=== PATIENT | male | born 1945 | race Caucasian/White ===

== ENCOUNTER 2018-01-12 18:50 | Inpatient (IN) | payer MEDICARE, OTHER ==
[~2018-01-12] VITALS: Ht 176.5 cm; Wt 140.9 kg
[2018-01-12 19:34] LABS: Basophils # (auto) 0 uL; Basophils % (auto) 0.6 % (0.0-2.0); Eosinophils # (auto) 0.1 uL; Eosinophils % (auto) 1.6 % (0.0-7.0); Hematocrit 37.2 % (41.0-53.0); Hemoglobin 12.6 g/dL (13.5-17.5); Lymphocytes # (auto) 1.4 uL; Lymphocytes % (auto) 20.4 % (10.0-50.0); Mean Corpuscular Hemoglobin 33.2 pg (28.0-32.0); Mean Corpuscular Volume 97.9 fL (80.0-100.0); Monocytes # (auto) 0.5 uL; Monocytes % (auto) 7.5 % (0.0-12.0); Neutrophils # (auto) 4.6 uL; Neutrophils % (auto) 69.9 % (37.0-80.0); Platelet Count (auto) 219 10^3/uL (140-450); Red Cell Distribution Width 13.8 % (11.8-14.3); White Blood Cell 6.6 10^3/uL (4.4-10.8)
[2018-01-12 19:42] LABS: Albumin 3.5 g/dL (3.4-5.0); BUN/Creatinine Ratio 15.1; Calcium 8.7 mg/dL (8.5-10.1); Potassium 3.8 mmol/L (3.5-5.1)
[2018-01-12 19:46] LABS: Bilirubin, Total 0.4 mg/dL (0.2-1.0)
[2018-01-13 03:46] LABS: Urine Bacteria NONE SEEN /hpf (None Seen); Urine Blood 3+ /uL (Negative); Urine WBC 535 /hpf (0 - 3); Urine WBC Clumps PRESENT /hpf (None Seen)
[2018-01-13 03:48] LABS: Urine Specific Gravity 1.008 (1.001-1.035)
[2018-01-13] MEDS ORDERED: HYDROcodone-ACET 5/325MG TAB PO PRN (06:00)
[2018-01-13] MEDS ORDERED: ACETAMINOPHEN 325 MG TAB PO PRN (06:00)
[2018-01-13] MEDS: SODIUM CHLORIDE 0.9% 1,000 ML IV SCH ×2 (06:39→22:17)
[2018-01-13 07:15] LABS: Hematocrit 34.5 % (41.0-53.0); Hemoglobin 11.6 g/dL (13.5-17.5)
[2018-01-13] MEDS: cefTRIAXone 1GM/10ml IVPUSH 10 ML IV SCH (09:12)
[2018-01-13] MEDS ORDERED: FUROSEMIDE 40 MG TAB PO SCH (10:00)
[2018-01-13] MEDS: LISINOPRIL 5 MG TAB PO SCH (10:08)
[2018-01-13] MEDS: NIFEdipine ER 30 MG TAB PO SCH (10:08)
[2018-01-13] MEDS: FAMOTIDINE 20 MG TAB PO SCH ×2 (10:08→22:17)
[2018-01-13 20:48] VITALS: BP 155/82
[2018-01-13 22:00] VITALS: BP 155/82
[2018-01-14] MEDS ORDERED: LISI-275 PO (00:47)
[2018-01-14] MEDS ORDERED: LEVO25TA49 PO (00:47)
[2018-01-14] MEDS ORDERED: DOXA4TAB40 PO (00:47)
[2018-01-14] MEDS ORDERED: NIFE90TA30 PO (00:47)
[2018-01-14] MEDS ORDERED: ASPI81TA27 PO (00:47)
[2018-01-14 05:00] VITALS: BP 147/87
[2018-01-14] MEDS: LEVOTHYROXINE SODIUM 50 MCG TAB PO SCH (06:45)
[2018-01-14 07:12] LABS: Basophils # (auto) 0 uL; Basophils % (auto) 0.4 % (0.0-2.0); Eosinophils # (auto) 0.1 uL; Eosinophils % (auto) 1.1 % (0.0-7.0); Hematocrit 34.4 % (41.0-53.0); Hemoglobin 11.7 g/dL (13.5-17.5); Lymphocytes # (auto) 1.1 uL; Lymphocytes % (auto) 13.5 % (10.0-50.0); Mean Corpuscular Hemoglobin 33.1 pg (28.0-32.0); Mean Corpuscular Hgb Conc. 33.9 g/dL (32.0-36.0); Mean Corpuscular Volume 97.6 fL (80.0-100.0); Monocytes # (auto) 0.7 uL; Neutrophils # (auto) 6.5 uL; Platelet Count (auto) 209 10^3/uL (140-450); Red Blood Cells 3.53 10^6/uL (4.5-5.90); Red Cell Distribution Width 13.6 % (11.8-14.3); White Blood Cell 8.4 10^3/uL (4.4-10.8)
[2018-01-14 07:25] LABS: Calcium 8.9 mg/dL (8.5-10.1); Potassium 3.7 mmol/L (3.5-5.1)
[2018-01-14 07:29] LABS: Albumin 3.1 g/dL (3.4-5.0); BUN/Creatinine Ratio 14.1
[2018-01-14 07:31] LABS: Bilirubin, Total 0.4 mg/dL (0.2-1.0); Total Protein 7.2 g/dL (6.4-8.2)
[2018-01-14 09:00] VITALS: BP 154/88
[2018-01-14] MEDS: cefTRIAXone 1GM/10ml IVPUSH 10 ML IV SCH (10:23)
[2018-01-14] MEDS: NIFEdipine ER 30 MG TAB PO SCH (10:23)
[2018-01-14] MEDS: FAMOTIDINE 20 MG TAB PO SCH ×2 (10:23→21:44)
[2018-01-14] MEDS: LISINOPRIL 5 MG TAB PO SCH (10:24)
[2018-01-14 12:51] VITALS: BP 149/76
[2018-01-14] MEDS: DOCUSATE SOD 100 MG CAP PO PRN ×2 (14:38→21:44)
[2018-01-14] MEDS: SODIUM CHLORIDE 0.9% 1,000 ML IV SCH (15:12)
[2018-01-14 16:31] VITALS: BP 134/81
[2018-01-14 22:00] VITALS: BP 145/77
[2018-01-15] MEDS: SODIUM CHLORIDE 0.9% 1,000 ML IV SCH (01:49)
[2018-01-15 05:00] VITALS: BP 144/88
[2018-01-15] MEDS: LEVOTHYROXINE SODIUM 50 MCG TAB PO SCH (06:07)
[2018-01-15] MEDS: cefTRIAXone 1GM/10ml IVPUSH 10 ML IV SCH (09:00)
[2018-01-15 09:12] VITALS: BP 140/72
[2018-01-15 10:18] LABS: Basophils # (auto) 0.1 uL; Basophils % (auto) 0.7 % (0.0-2.0); Eosinophils # (auto) 0.2 uL; Eosinophils % (auto) 2.7 % (0.0-7.0); Hematocrit 33.1 % (41.0-53.0); Lymphocytes # (auto) 1.3 uL; Mean Corpuscular Hemoglobin 32.4 pg (28.0-32.0); Mean Corpuscular Hgb Conc. 33.3 g/dL (32.0-36.0); Mean Corpuscular Volume 97.4 fL (80.0-100.0); Monocytes # (auto) 0.7 uL; Monocytes % (auto) 8.2 % (0.0-12.0); Neutrophils % (auto) 72.4 % (37.0-80.0); Platelet Count (auto) 213 10^3/uL (140-450); Red Cell Distribution Width 13.6 % (11.8-14.3); White Blood Cell 8.2 10^3/uL (4.4-10.8)
[2018-01-15] MEDS: NIFEdipine ER 30 MG TAB PO SCH (10:21)
[2018-01-15] MEDS: FAMOTIDINE 20 MG TAB PO SCH ×2 (10:22→21:41)
[2018-01-15] MEDS: LISINOPRIL 5 MG TAB PO SCH (10:22)
[2018-01-15 10:32] LABS: INR 1.04 (0.9-1.15); Partial Thromboplastin Time 28.6 sec (23.78-33.04); Prothrombin Time 11.1 sec (9.27-12.13)
[2018-01-15 10:37] LABS: BUN/Creatinine Ratio 13.9; Calcium 8.9 mg/dL (8.5-10.1); Potassium 3.5 mmol/L (3.5-5.1)
[2018-01-15] MEDS ORDERED: FUROSEMIDE 40 MG/4 ML VIAL IV ONE (11:00)
[2018-01-15] MEDS ORDERED: POTASSIUM CHL 20 Meq TABLET PO ONE (11:00)
[2018-01-15 13:25] VITALS: BP 139/74
[2018-01-15 16:57] VITALS: BP 142/75
[2018-01-15 17:00] VITALS: BP 137/65
[2018-01-15 22:12] VITALS: BP 136/83
[2018-01-16] VITALS (7 sets, daily range): BP systolic 121–164; BP diastolic 62–80
[2018-01-16] MEDS: LEVOTHYROXINE SODIUM 50 MCG TAB PO SCH (06:48)
[2018-01-16] MEDS ORDERED: HYDROcodone-ACET 5/325MG TAB PO PRN (10:15)
[2018-01-16] MEDS: FAMOTIDINE 20 MG TAB PO SCH ×2 (10:47→21:39)
[2018-01-16] MEDS: FUROSEMIDE 40 MG/4 ML VIAL IV SCH (10:47)
[2018-01-16] MEDS: cefTRIAXone 1GM/10ml IVPUSH 10 ML IV SCH (10:47)
[2018-01-16] MEDS: POTASSIUM CHL 20 Meq TABLET PO SCH (10:48)
[2018-01-16] MEDS: NIFEdipine ER 30 MG TAB PO SCH (10:48)
[2018-01-16] MEDS: LISINOPRIL 5 MG TAB PO SCH (10:48)
[2018-01-16] MEDS: DOCUSATE SOD 100 MG CAP PO PRN (21:39)
[2018-01-17 04:58] VITALS: BP 145/79
[2018-01-17] MEDS ORDERED: FLEET ENEMA(ADULT) 135 ML PR ONE (05:00)
[2018-01-17] MEDS: LEVOTHYROXINE SODIUM 50 MCG TAB PO SCH (06:33)
[2018-01-17 07:40] VITALS: BP 130/86
[2018-01-17 09:00] VITALS: BP 130/86
[2018-01-17] MEDS: LACTULOSE 20Gm/30ML SOLN PO SCH ×2 (10:50→22:07)
[2018-01-17] MEDS: FAMOTIDINE 20 MG TAB PO SCH ×2 (10:50→22:07)
[2018-01-17] MEDS: POTASSIUM CHL 20 Meq TABLET PO SCH (10:50)
[2018-01-17] MEDS: FUROSEMIDE 40 MG/4 ML VIAL IV SCH (10:50)
[2018-01-17] MEDS: LISINOPRIL 5 MG TAB PO SCH (10:51)
[2018-01-17] MEDS: NIFEdipine ER 30 MG TAB PO SCH (10:51)
[2018-01-17 13:00] VITALS: BP 138/67
[2018-01-17 17:00] VITALS: BP 129/76
[2018-01-17 21:51] VITALS: BP 150/75
[2018-01-18] VITALS (7 sets, daily range): BP systolic 129–158; BP diastolic 68–78
[2018-01-18] MEDS: LEVOTHYROXINE SODIUM 50 MCG TAB PO SCH (06:48)
[2018-01-18] MEDS: FUROSEMIDE 40 MG/4 ML VIAL IV SCH (10:19)
[2018-01-18] MEDS: LISINOPRIL 5 MG TAB PO SCH (10:20)
[2018-01-18] MEDS: POTASSIUM CHL 20 Meq TABLET PO SCH (10:20)
[2018-01-18] MEDS: LACTULOSE 20Gm/30ML SOLN PO SCH ×2 (10:20→21:32)
[2018-01-18] MEDS: NIFEdipine ER 30 MG TAB PO SCH (10:21)
[2018-01-18] MEDS: FAMOTIDINE 20 MG TAB PO SCH ×2 (10:22→21:32)
[2018-01-19 05:23] VITALS: BP 145/84
[2018-01-19 05:28] LABS: Basophils # (auto) 0.1 uL; Basophils % (auto) 0.8 % (0.0-2.0); Eosinophils # (auto) 0.4 uL; Eosinophils % (auto) 5.2 % (0.0-7.0); Hematocrit 34.9 % (41.0-53.0); Hemoglobin 11.8 g/dL (13.5-17.5); Lymphocytes # (auto) 1.3 uL; Lymphocytes % (auto) 16.8 % (10.0-50.0); Mean Corpuscular Hgb Conc. 33.7 g/dL (32.0-36.0); Monocytes # (auto) 0.8 uL; Neutrophils # (auto) 5.4 uL; Neutrophils % (auto) 67.2 % (37.0-80.0); Platelet Count (auto) 234 10^3/uL (140-450); Red Blood Cells 3.57 10^6/uL (4.5-5.90); Red Cell Distribution Width 13.7 % (11.8-14.3)
[2018-01-19 05:37] LABS: INR 0.99 (0.9-1.15); Partial Thromboplastin Time 27.4 sec (23.78-33.04); Prothrombin Time 10.6 sec (9.27-12.13)
[2018-01-19] MEDS: LEVOTHYROXINE SODIUM 50 MCG TAB PO SCH (06:31)
[2018-01-19 06:40] LABS: Albumin 3.1 g/dL (3.4-5.0); BUN/Creatinine Ratio 21.4; Bilirubin, Total 0.4 mg/dL (0.2-1.0); Calcium 8.9 mg/dL (8.5-10.1); Potassium 4.1 mmol/L (3.5-5.1); Total Protein 7.4 g/dL (6.4-8.2)
[2018-01-19 09:00] VITALS: BP 128/69
[2018-01-19] MEDS ORDERED: HYDROcodone-ACET 5/325MG TAB PO PRN (09:30)
[2018-01-19] MEDS: LACTULOSE 20Gm/30ML SOLN PO SCH ×2 (09:33→22:00)
[2018-01-19] MEDS: FAMOTIDINE 20 MG TAB PO SCH ×2 (09:35→22:13)
[2018-01-19] MEDS: LISINOPRIL 5 MG TAB PO SCH (09:36)
[2018-01-19] MEDS: NIFEdipine ER 30 MG TAB PO SCH (09:36)
[2018-01-19 13:00] VITALS: BP 141/77
[2018-01-19] MEDS: AMPICILLIN INJ 1 GM in SODIUM CHL 0.9% 50 ML IV SCH ×3 (15:20→23:07)
[2018-01-19 17:00] VITALS: BP 149/71
[2018-01-19] MEDS: TEMAZEPAM 15 MG CAP PO PRN ×2 (22:14→22:26)
[2018-01-20 00:08] VITALS: BP 135/83
[2018-01-20 05:05] VITALS: BP 127/57
[2018-01-20] MEDS: AMPICILLIN INJ 1 GM in SODIUM CHL 0.9% 50 ML IV SCH ×3 (05:42→18:00)
[2018-01-20 05:45] LABS: Basophils # (auto) 0.1 uL; Basophils % (auto) 0.7 % (0.0-2.0); Eosinophils # (auto) 0.3 uL; Eosinophils % (auto) 4.2 % (0.0-7.0); Hematocrit 33.7 % (41.0-53.0); Hemoglobin 11.7 g/dL (13.5-17.5); Lymphocytes # (auto) 1.1 uL; Lymphocytes % (auto) 13.7 % (10.0-50.0); Mean Corpuscular Hemoglobin 33.7 pg (28.0-32.0); Mean Corpuscular Hgb Conc. 34.7 g/dL (32.0-36.0); Mean Corpuscular Volume 97.2 fL (80.0-100.0); Monocytes # (auto) 0.7 uL; Monocytes % (auto) 8.4 % (0.0-12.0); Neutrophils # (auto) 5.8 uL; Platelet Count (auto) 227 10^3/uL (140-450); Red Blood Cells 3.47 10^6/uL (4.5-5.90); Red Cell Distribution Width 13.6 % (11.8-14.3); White Blood Cell 7.9 10^3/uL (4.4-10.8)
[2018-01-20 06:04] LABS: BUN/Creatinine Ratio 22.1; Calcium 8.7 mg/dL (8.5-10.1); Potassium 4.2 mmol/L (3.5-5.1)
[2018-01-20] MEDS: LEVOTHYROXINE SODIUM 50 MCG TAB PO SCH (06:41)
[2018-01-20 08:58] VITALS: BP 140/75
[2018-01-20] MEDS: FAMOTIDINE 20 MG TAB PO SCH ×2 (10:00→21:18)
[2018-01-20] MEDS: LACTULOSE 20Gm/30ML SOLN PO SCH ×2 (10:00→21:18)
[2018-01-20] MEDS: LISINOPRIL 5 MG TAB PO SCH (10:12)
[2018-01-20] MEDS: NIFEdipine ER 30 MG TAB PO SCH (10:12)
[2018-01-20 11:17] VITALS: BP 137/78
[2018-01-20 16:59] VITALS: BP 141/72
[2018-01-20] MEDS ORDERED: LABETALOL HCL 5 MG/ML 4ML SYRINGE IV PRN (17:15)
[2018-01-20] MEDS ORDERED: hydrALAZINE HCL 20 MG/ML VL IV PRN (17:15)
[2018-01-20] MEDS ORDERED: HYDROmorphone HCL 2 MG/ML VL IV PRN (17:15)
[2018-01-20] MEDS ORDERED: ePHEDrine SULFATE 50 MG/ML AMP IV PRN (17:15)
[2018-01-20] MEDS ORDERED: METOCLOPRAMIDE HCL 5MG/ml INJ 2ml VIAL IV ONE (17:15)
[2018-01-20] MEDS ORDERED: ONDANSETRON HCL 4 MG/2 ML VIAL IV ONE (17:15)
[2018-01-20] MEDS ORDERED: ROCURONIUM 10MG/ML 10ML VIAL IV ONE (17:17)
[2018-01-20] MEDS ORDERED: fentaNYL CITRATE 100 MCG/2 ML VL ONE (17:17)
[2018-01-20] MEDS ORDERED: PROPOFOL 10 MG/ML 20 ML IV ONE (17:31)
[2018-01-20] MEDS ORDERED: LIDOCAINE 2% (LOCAL ANESTH.) PF 5ml SDV ONE (17:31)
[2018-01-20] MEDS ORDERED: fentaNYL CITRATE 100 MCG/2 ML VL IV ONE (18:00)
[2018-01-20] MEDS ORDERED: GLYCOPYRROLATE 0.2 MG/ML 1ML VIAL ONE (18:03)
[2018-01-20] MEDS ORDERED: NEOSTIGMINE 1 MG/ML INJ (10mg/10ML VIAL) ONE (18:03)
[2018-01-20] MEDS: ONDANSETRON HCL 4 MG/2 ML VIAL IV PRN (21:18)
[2018-01-20 22:00] VITALS: BP 137/61
[2018-01-21] MEDS: AMPICILLIN INJ 1 GM in SODIUM CHL 0.9% 50 ML IV SCH ×5 (00:15→23:16)
[2018-01-21 05:00] VITALS: BP 141/77
[2018-01-21] MEDS: LEVOTHYROXINE SODIUM 50 MCG TAB PO SCH (06:23)
[2018-01-21 08:00] VITALS: BP 136/74
[2018-01-21 09:00] VITALS: BP 136/74
[2018-01-21] MEDS: NIFEdipine ER 30 MG TAB PO SCH (10:00)
[2018-01-21] MEDS ORDERED: TEMAZEPAM 15 MG CAP PO PRN (10:00)
[2018-01-21] MEDS: FAMOTIDINE 20 MG TAB PO SCH ×2 (10:00→22:09)
[2018-01-21] MEDS: LISINOPRIL 5 MG TAB PO SCH (10:00)
[2018-01-21] MEDS: LACTULOSE 20Gm/30ML SOLN PO SCH ×2 (10:57→21:24)
[2018-01-21 17:00] VITALS: BP 111/65
[2018-01-21 22:00] VITALS: BP 112/69
[2018-01-21] MEDS: DOCUSATE SOD 100 MG CAP PO PRN (22:09)
[2018-01-22] VITALS (7 sets, daily range): BP systolic 112–158; BP diastolic 59–79
[2018-01-22] MEDS: ONDANSETRON HCL 4 MG/2 ML VIAL IV PRN (02:51)
[2018-01-22 06:03] LABS: Basophils # (auto) 0.1 uL; Basophils % (auto) 0.6 % (0.0-2.0); Eosinophils # (auto) 0.1 uL; Eosinophils % (auto) 1.6 % (0.0-7.0); Hematocrit 35.5 % (41.0-53.0); Hemoglobin 12.2 g/dL (13.5-17.5); Lymphocytes # (auto) 0.7 uL; Mean Corpuscular Hemoglobin 33.8 pg (28.0-32.0); Mean Corpuscular Hgb Conc. 34.3 g/dL (32.0-36.0); Mean Corpuscular Volume 98.4 fL (80.0-100.0); Monocytes # (auto) 0.6 uL; Monocytes % (auto) 6.7 % (0.0-12.0); Neutrophils # (auto) 7.9 uL; Neutrophils % (auto) 84.1 % (37.0-80.0); Platelet Count (auto) 268 10^3/uL (140-450); Red Blood Cells 3.61 10^6/uL (4.5-5.90); Red Cell Distribution Width 13.6 % (11.8-14.3); White Blood Cell 9.4 10^3/uL (4.4-10.8)
[2018-01-22] MEDS: AMPICILLIN INJ 1 GM in SODIUM CHL 0.9% 50 ML IV SCH ×4 (06:15→23:34)
[2018-01-22] MEDS: LEVOTHYROXINE SODIUM 50 MCG TAB PO SCH (06:16)
[2018-01-22 06:29] LABS: BUN/Creatinine Ratio 16.8; Calcium 8.7 mg/dL (8.5-10.1); Potassium 4.1 mmol/L (3.5-5.1)
[2018-01-22] MEDS ORDERED: HYDROcodone-ACET 5/325MG TAB PO PRN (09:30)
[2018-01-22] MEDS: LACTULOSE 20Gm/30ML SOLN PO SCH ×3 (10:01→22:00)
[2018-01-22] MEDS: FAMOTIDINE 20 MG TAB PO SCH ×3 (10:02→22:11)
[2018-01-22] MEDS: DOCUSATE SOD 100 MG CAP PO PRN (10:03)
[2018-01-22] MEDS: NIFEdipine ER 30 MG TAB PO SCH (10:03)
[2018-01-22] MEDS: SODIUM CHLORIDE 0.9% 1,000 ML IV SCH ×2 (10:30→20:57)
[2018-01-22] MEDS ORDERED: FLEET ENEMA(ADULT) 135 ML PR ONE (18:30)
[2018-01-22] MEDS ORDERED: BISACODYL 5 MG EC TAB PO PRN (18:30)
[2018-01-23 04:48] VITALS: BP_SYST 120; BP_SYST 135; BP_DIAS 67; BP_DIAS 90
[2018-01-23] MEDS: SODIUM CHLORIDE 0.9% 1,000 ML IV SCH (05:37)
[2018-01-23] MEDS: AMPICILLIN INJ 1 GM in SODIUM CHL 0.9% 50 ML IV SCH ×2 (05:38→12:00)
[2018-01-23] MEDS: LEVOTHYROXINE SODIUM 50 MCG TAB PO SCH (06:22)
[2018-01-23 07:46] LABS: BUN/Creatinine Ratio 19.5; Calcium 8.5 mg/dL (8.5-10.1); Potassium 3.9 mmol/L (3.5-5.1)
[2018-01-23 08:00] VITALS: BP_SYST 127; BP_SYST 129; BP_SYST 161; BP_DIAS 102; BP_DIAS 69; BP_DIAS 72
[2018-01-23 09:51] LABS: INR 1.01 (0.9-1.15); Partial Thromboplastin Time 28.7 sec (23.78-33.04); Prothrombin Time 10.8 sec (9.27-12.13)
[2018-01-23] MEDS ORDERED: fentaNYL CITRATE 100 MCG/2 ML VL ONE (09:53)
[2018-01-23] MEDS ORDERED: MIDAZOLAM HCL 1MG/1ML-2 ML VIAL ONE (09:53)
[2018-01-23] MEDS: LACTULOSE 20Gm/30ML SOLN PO SCH (10:00)
[2018-01-23] MEDS ORDERED: GELATIN 1 SPONGE SIZE 50 TOP ONE (10:15)
[2018-01-23] MEDS: FAMOTIDINE 20 MG TAB PO SCH (11:40)
[2018-01-23] MEDS: NIFEdipine ER 30 MG TAB PO SCH (11:41)
[2018-01-23 12:00] VITALS: BP_SYST 137; BP_SYST 155; BP_DIAS 104; BP_DIAS 69
[2018-01-23 13:21] VITALS: BP 127/72
== END 2018-01-23 14:20 | disposition home health service (06) | DRG 668 ==
LOC: ER 18:50 → OVERFLOW 18:51 → WEST WING 01-13 18:33
PROVIDERS: ADMIT Nurse Practitioner; ATTEND Internal Medicine
PROC: 0TBB8ZZ Excision of Bladder, Via Natural or Artificial Opening Endoscopic (ICD-10-PCS; principal; 2018-01-20 17:16)
PROC: 0FB13ZX Excision of Right Lobe Liver, Percutaneous Approach, Diagnostic (ICD-10-PCS; 2018-01-23)
DX: C67.9 Malignant neoplasm of bladder, unspecified (principal); N17.0 Acute kidney failure with tubular necrosis; I50.32 Chronic diastolic (congestive) heart failure; N13.6 Pyonephrosis; C64.1 Malignant neoplasm of right kidney, except renal pelvis; D62 Acute posthemorrhagic anemia; Z68.42 Body mass index [BMI] 45.0-49.9, adult; E66.01 Morbid (severe) obesity due to excess calories; I11.0 Hypertensive heart disease with heart failure; E03.9 Hypothyroidism, unspecified; I35.1 Nonrheumatic aortic (valve) insufficiency; K57.30 Diverticulosis of large intestine without perforation or abscess without bleeding; Z80.9 Family history of malignant neoplasm, unspecified; Z82.0 Family history of epilepsy and other diseases of the nervous system; N40.1 Benign prostatic hyperplasia with lower urinary tract symptoms; R33.8 Other retention of urine; I89.0 Lymphedema, not elsewhere classified; Z79.82 Long term (current) use of aspirin; Z79.899 Other long term (current) drug therapy; K76.9 Liver disease, unspecified
CPT/HCPCS: 10022; 36415; 71045; 74150; 74178; 76775; 77012; 80048; 80053; 81001; 83880; 84132; 84484; 85014; 85018; 85025; 85610; 85730; 86850; 86900; 86901; 87070; 87077; 87086; 87186; 88108; 93005; 93306; 93970; A4565; J0696; J2001; J2250; J2405; J2704

== ENCOUNTER → 2018-01-31 | Outpatient (CLI) | payer MEDICARE, OTHER ==
[~2018-01-31] MED LIST: DOXA4TAB40 PO; LEVO25TA49 PO; NIFE90TA30 PO
[2018-01-31 08:55] LABS: Basophils # (auto) 0.1 uL; Eosinophils # (auto) 0.1 uL; Eosinophils % (auto) 2.3 % (0.0-7.0); Hematocrit 32.8 % (41.0-53.0); Lymphocytes # (auto) 1.2 uL; Lymphocytes % (auto) 19.4 % (10.0-50.0); Mean Corpuscular Hemoglobin 32.9 pg (28.0-32.0); Mean Corpuscular Hgb Conc. 33.6 g/dL (32.0-36.0); Mean Corpuscular Volume 97.9 fL (80.0-100.0); Monocytes # (auto) 0.5 uL; Monocytes % (auto) 8.9 % (0.0-12.0); Neutrophils # (auto) 4.1 uL; Neutrophils % (auto) 68.4 % (37.0-80.0); Platelet Count (auto) 276 10^3/uL (140-450); Red Blood Cells 3.35 10^6/uL (4.5-5.90); Red Cell Distribution Width 13.6 % (11.8-14.3)
[2018-01-31 09:41] LABS: Albumin 3.2 g/dL (3.4-5.0); BUN/Creatinine Ratio 12.1; Bilirubin, Total 0.5 mg/dL (0.2-1.0); Calcium 8.7 mg/dL (8.5-10.1); Potassium 3.8 mmol/L (3.5-5.1); Total Protein 7.8 g/dL (6.4-8.2)
== END | disposition home or self-care (01) ==
LOC: LAB 08:22
PROVIDERS: ATTEND Internal Medicine
DX: N40.1 Benign prostatic hyperplasia with lower urinary tract symptoms (principal); C67.9 Malignant neoplasm of bladder, unspecified
CPT/HCPCS: 36415; 80053; 84153; 85025

== ENCOUNTER → 2018-02-12 | Outpatient (CLI) | payer MEDICARE, OTHER | END | disposition home or self-care (01) | LOC: XY 08:21 | PROVIDERS: ATTEND Urology | DX: C61 Malignant neoplasm of prostate (principal) | CPT/HCPCS: 78306; A9503 ==

== ENCOUNTER → 2018-09-05 | Day surgery (SDC) | payer MEDICARE, OTHER ==
[2018-09-04 11:24] LABS: Basophils # (auto) 0 uL; Basophils % (auto) 0.8 % (0.0-2.0); Eosinophils # (auto) 0.4 uL; Eosinophils % (auto) 6.6 % (0.0-7.0); Hematocrit 36.7 % (41.0-53.0); Lymphocytes # (auto) 1.8 uL; Lymphocytes % (auto) 29.6 % (10.0-50.0); Mean Corpuscular Hemoglobin 31.3 pg (28.0-32.0); Mean Corpuscular Hgb Conc. 32.7 g/dL (32.0-36.0); Mean Corpuscular Volume 95.5 fL (80.0-100.0); Monocytes # (auto) 0.5 uL; Monocytes % (auto) 8.2 % (0.0-12.0); Neutrophils # (auto) 3.3 uL; Neutrophils % (auto) 54.8 % (37.0-80.0); Platelet Count (auto) 197 10^3/uL (140-450); Red Blood Cells 3.84 10^6/uL (4.5-5.90); Red Cell Distribution Width 16.9 % (11.8-14.3)
[2018-09-04 11:34] LABS: INR 0.95 (0.9-1.15); Partial Thromboplastin Time 26.4 sec (23.78-33.04); Prothrombin Time 10.2 sec (9.27-12.13)
[2018-09-04 11:35] LABS: Urine Bacteria NONE SEEN /hpf (None Seen); Urine Blood Negative /uL (Negative); Urine Specific Gravity 1.011 (1.001-1.035); Urine WBC 2 /hpf (0 - 3)
[2018-09-04 11:58] LABS: Albumin 3.9 g/dL (3.4-5.0); BUN/Creatinine Ratio 25.2; Calcium 9.9 mg/dL (8.5-10.1)
[2018-09-04 12:01] LABS: Bilirubin, Total 0.4 mg/dL (0.2-1.0); Total Protein 7.6 g/dL (6.4-8.2)
[~2018-09-05] VITALS: Ht 175.3 cm; Wt 129.3 kg
[~2018-09-05] MED LIST changes: +BICA50TA13 PO; +DexAMETHasone SOD PHOS 10MG/1ML VIAL INJ IV ONE; +FURO40TA4 PO; +GLYCOPYRROLATE 0.2 MG/ML 1ML VIAL IV ONE; +LOSA100T33 PO; +METO-169 PO; +METO2.5T11 PO; +METOCLOPRAMIDE HCL 5MG/ml INJ 2ml VIAL IV ONE; +MIDAZOLAM HCL 1MG/1ML-2 ML VIAL IV PRN; -NIFE90TA30 PO; +ONDANSETRON HCL 4 MG/2 ML VIAL IV ONE; +PHENYLEPHRINE HCL 10 MG/ML VL IV ONE; +POTA20TA53 PO; +PROPOFOL 10 MG/ML 20 ML IV ONE; +SUCCINYLCHOLINE CHLORIDE 20 MG/ML 10ML VIAL IV ONE; +ceFAZolin 1GM/50ML 50 ML IV ONE; +fentaNYL CITRATE 100 MCG/2 ML VL ONE
[2018-09-05 14:50] VITALS: BP 153/80
== END | disposition home or self-care (01) ==
LOC: SUR 08:49
PROVIDERS: ATTEND Urology
DX: N35.819 Other urethral stricture, male, unspecified site (principal); C61 Malignant neoplasm of prostate; R33.9 Retention of urine, unspecified; I11.0 Hypertensive heart disease with heart failure; I50.9 Heart failure, unspecified; E66.9 Obesity, unspecified; Z87.891 Personal history of nicotine dependence; Z68.41 Body mass index [BMI] 40.0-44.9, adult; Z98.52 Vasectomy status
CPT/HCPCS: 36415; 52281; 80053; 81001; 85025; 85610; 85730; J0330; J0690; J1100; J1642; J2370; J2704; J3010; Q4100

== ENCOUNTER → 2019-04-13 | Day surgery (SDC) | payer MEDICARE, OTHER ==
[2019-04-09 10:35] LABS: Urine WBC None Seen /hpf (0 - 3)
[2019-04-09 10:36] LABS: Basophils # (auto) 0 uL; Eosinophils # (auto) 0.2 uL; Neutrophils # (auto) 3.1 uL
[2019-04-09 10:39] LABS: Basophils % (auto) 0.9 % (0.0-2.0); Hematocrit 35.2 % (41.0-53.0); Lymphocytes # (auto) 1.7 uL; Lymphocytes % (auto) 31.2 % (10.0-50.0); Mean Corpuscular Hemoglobin 33.8 pg (28.0-32.0); Mean Corpuscular Volume 99.4 fL (80.0-100.0); Monocytes # (auto) 0.4 uL; Neutrophils % (auto) 55.9 % (37.0-80.0); Nucleated Red Blood Cells % 0.1 %; Platelet Count (auto) 170 10^3/uL (140-450); Red Blood Cells 3.54 10^6/uL (4.5-5.90); Red Cell Distribution Width 12.9 % (11.8-14.3); White Blood Cell 5.5 10^3/uL (4.4-10.8)
[2019-04-09 10:41] LABS: Urine Bacteria NONE SEEN /hpf (None Seen); Urine Blood Negative /uL (Negative); Urine Hyaline Cast FEW /lpf (0 - 2); Urine Specific Gravity 1.011 (1.001-1.035)
[2019-04-09 10:51] LABS: INR 0.98 (0.9-1.15); Partial Thromboplastin Time 27.7 sec (23.64-32.05)
[2019-04-09 11:04] LABS: Albumin 3.9 g/dL (3.4-5.0); Calcium 9.2 mg/dL (8.5-10.1); Potassium 3.9 mmol/L (3.5-5.1)
[2019-04-09 11:05] LABS: BUN/Creatinine Ratio 20.6
[2019-04-09 11:08] LABS: Bilirubin, Total 0.4 mg/dL (0.2-1.0); Total Protein 7.2 g/dL (6.4-8.2)
[~2019-04-13] VITALS: Ht 177.8 cm; Wt 136.1 kg
[~2019-04-13] MED LIST changes: +CIPROFLOXACIN 400MG/200ML 200 ML IV ONE; -DOXA4TAB40 PO; +DOXA4TAB5 PO; -DexAMETHasone SOD PHOS 10MG/1ML VIAL INJ IV ONE; -GLYCOPYRROLATE 0.2 MG/ML 1ML VIAL IV ONE; -METOCLOPRAMIDE HCL 5MG/ml INJ 2ml VIAL IV ONE; -MIDAZOLAM HCL 1MG/1ML-2 ML VIAL IV PRN; -ONDANSETRON HCL 4 MG/2 ML VIAL IV ONE; -PHENYLEPHRINE HCL 10 MG/ML VL IV ONE; +POTA-220 PO; -POTA20TA53 PO; -PROPOFOL 10 MG/ML 20 ML IV ONE; -SUCCINYLCHOLINE CHLORIDE 20 MG/ML 10ML VIAL IV ONE; -ceFAZolin 1GM/50ML 50 ML IV ONE; -fentaNYL CITRATE 100 MCG/2 ML VL ONE
== END | disposition home or self-care (01) ==
LOC: SUR 08:25
PROVIDERS: ATTEND Urology
DX: D49.4 Neoplasm of unspecified behavior of bladder (principal)
CPT/HCPCS: 36415; 80053; 81001; 85025; 85610; 85730; J0744

== ENCOUNTER → 2020-01-11 | Outpatient (CLI) | payer MEDICARE, OTHER ==
[~2020-01-11] MED LIST changes: -CIPROFLOXACIN 400MG/200ML 200 ML IV ONE; +MULT-908 PO
== END | disposition home or self-care (01) ==
LOC: LAB 13:51
PROVIDERS: ATTEND Urology
DX: C67.9 Malignant neoplasm of bladder, unspecified (principal)

== ENCOUNTER 2020-02-04 09:58 | Inpatient (IN) | payer MEDICARE, OTHER ==
[2020-01-28 11:37] LABS: Basophils # (auto) 0 10 ^3/uL (0-0.2); Basophils % (auto) 0.6 % (0.0-2.0); Eosinophils # (auto) 0.4 10 ^3/uL (0-0.8); Eosinophils % (auto) 4.7 % (0.0-7.0); Hematocrit 36.9 % (41.0-53.0); Hemoglobin 12.2 g/dL (13.5-17.5); Lymphocytes # (auto) 1.9 10 ^3/uL (0.4-5.4); Lymphocytes % (auto) 23.4 % (10.0-50.0); Mean Corpuscular Hemoglobin 33.2 pg (28.0-32.0); Mean Corpuscular Hgb Conc. 33.1 g/dL (32.0-36.0); Mean Corpuscular Volume 100.1 fL (80.0-100.0); Monocytes # (auto) 0.6 10 ^3/uL (0-1.3); Monocytes % (auto) 7.5 % (0.0-12.0); Neutrophils # (auto) 5.1 10 ^3/uL (1.6-8.6); Neutrophils % (auto) 63.8 % (37.0-80.0); Platelet Count (auto) 183 10^3/uL (140-450); Red Blood Cells 3.69 10^6/uL (4.5-5.90); Red Cell Distribution Width 13.2 % (11.8-14.3); White Blood Cell 8.1 10^3/uL (4.4-10.8)
[2020-01-28 11:39] LABS: Urine Bacteria NONE SEEN /hpf (None Seen); Urine Blood Negative /uL (Negative); Urine Specific Gravity 1.015 (1.001-1.035); Urine WBC 1 /hpf (0 - 3)
[2020-01-28 11:57] LABS: Calcium 9.6 mg/dL (8.5-10.1); Potassium 4.2 mmol/L (3.5-5.1)
[2020-01-28 11:58] LABS: INR 1.04 (0.9-1.15); Partial Thromboplastin Time 26.6 sec (23.0-31.2)
[2020-01-28 12:02] LABS: BUN/Creatinine Ratio 22.9; Bilirubin, Total 0.5 mg/dL (0.2-1.0); Total Protein 7.6 g/dL (6.4-8.2)
[~2020-02-04] VITALS: Ht 177.8 cm; Wt 149.9 kg
[2020-02-04] MEDS ORDERED: CIPROFLOXACIN 400MG/200ML 200 ML IV ONE (12:37)
[2020-02-04] MEDS ORDERED: mitoMYcin 40 MG in STERILE WATER 60 ML IS ONE (13:00)
[2020-02-04] MEDS ORDERED: SUCCINYLCHOLINE CHLORIDE 20 MG/ML 10ML VIAL IV ONE ×2 (13:05→14:39)
[2020-02-04] MEDS ORDERED: LIDOCAINE 1% (LOCAL ANESTH.) PF 5ml SDV ONE (13:05)
[2020-02-04] MEDS ORDERED: MIDAZOLAM HCL 1MG/1ML-2 ML VIAL ONE ×2 (13:11→14:45)
[2020-02-04] MEDS ORDERED: ROCURONIUM 10MG/ML 10ML VIAL IV ONE (13:12)
[2020-02-04] MEDS ORDERED: PROPOFOL 10 MG/ML 20 ML IV ONE (13:13)
[2020-02-04] MEDS ORDERED: METOCLOPRAMIDE HCL 5MG/ml INJ 2ml VIAL ONE (13:13)
[2020-02-04] MEDS ORDERED: ONDANSETRON HCL 4 MG/2 ML VIAL IV PRN ×2 (13:30→18:15)
[2020-02-04] MEDS ORDERED: HYDROmorphone HCL 2 MG/ML VL IV PRN ×2 (13:30)
[2020-02-04] MEDS ORDERED: NALOXONE HCL 0.4 MG/ML VIAL IV PRN (13:30)
[2020-02-04] MEDS ORDERED: fentaNYL CITRATE 100 MCG/2 ML VL ONE (13:36)
[2020-02-04] MEDS ORDERED: ePHEDrine SULFATE 50 MG/ML AMP ONE (13:40)
[2020-02-04] MEDS ORDERED: SODIUM CHLORIDE LOCK 10 ML ONE (13:40)
[2020-02-04] MEDS ORDERED: GLYCOPYRROLATE 0.2 MG/ML 1ML VIAL ONE (14:08)
[2020-02-04 14:45] VITALS: BP 199/104
[2020-02-04] MEDS ORDERED: FUROSEMIDE 20 MG/2 ML VIAL ONE (15:09)
[2020-02-04] MEDS ORDERED: ALBUTEROL SULF 2.5 MG/0.5ML(0.5%) NEB SOLN ONE (16:14)
[2020-02-04] MEDS ORDERED: IPRATROPIUM BROM 0.5 MG/2.5ML INH SOL NEB ONE (16:15)
[2020-02-04] MEDS ORDERED: IPRATROPIUM BROM 0.5 MG/2.5ML INH SOL ONE (16:15)
[2020-02-04] MEDS ORDERED: ALBUTEROL SULF 2.5 MG/0.5ML(0.5%) NEB SOLN NEB ONE (16:15)
[2020-02-04] MEDS ORDERED: NITROGLYCERIN 0.4 MG SL TAB SL PRN (18:15)
[2020-02-04] MEDS ORDERED: MORPHINE SULF INJ 2 MG/ML SYRINGE 1ML IV PRN ×2 (18:15)
[2020-02-04] MEDS ORDERED: DEXTROSE (50%) 50ML SYRG IV PRN (18:15)
[2020-02-04] MEDS ORDERED: SODIUM CHLORIDE 0.9% 1,000 ML IV SCH (18:15)
--- NOTE | 2020-02-04 19:00 | NUR ---
Received pt from PACU. Received report from mine Cano
[2020-02-04 21:00] VITALS: BP 133/74
[2020-02-04 22:00] VITALS: BP 133/74
[2020-02-04] MEDS ORDERED: InsuLIN REG 1unit/0.01ml Soln (100units/ml) SC SCH (22:00)
--- NOTE | 2020-02-04 22:00 | NUR ---
checked blood sugar as ordered = 152 but pt refused insulin stated he in not diabetic. pt just are sandwich
[2020-02-04] MEDS: ACCU-CHEK COMFORT CURVE STRIP VI SCH (22:06)
[2020-02-05 05:00] VITALS: BP 137/71
[2020-02-05 06:05] LABS: Basophils # (auto) 0 10 ^3/uL (0-0.2); Eosinophils # (auto) 0.1 10 ^3/uL (0-0.8); Mean Corpuscular Hemoglobin 34.2 pg (28.0-32.0); Monocytes # (auto) 0.6 10 ^3/uL (0-1.3); Neutrophils # (auto) 6.8 10 ^3/uL (1.6-8.6); White Blood Cell 8.7 10^3/uL (4.4-10.8)
[2020-02-05 06:07] LABS: Basophils % (auto) 0.4 % (0.0-2.0); Eosinophils % (auto) 1.7 % (0.0-7.0); Hematocrit 33.9 % (41.0-53.0); Hemoglobin 11.8 g/dL (13.5-17.5); Lymphocytes # (auto) 1.1 10 ^3/uL (0.4-5.4); Lymphocytes % (auto) 12.3 % (10.0-50.0); Mean Corpuscular Hgb Conc. 34.6 g/dL (32.0-36.0); Mean Corpuscular Volume 98.8 fL (80.0-100.0); Monocytes % (auto) 7.4 % (0.0-12.0); Neutrophils % (auto) 78.2 % (37.0-80.0); Platelet Count (auto) 177 10^3/uL (140-450); Red Blood Cells 3.43 10^6/uL (4.5-5.90); Red Cell Distribution Width 12.8 % (11.8-14.3)
[2020-02-05] MEDS: ACCU-CHEK COMFORT CURVE STRIP VI SCH (06:21)
[2020-02-05 06:22] LABS: Potassium 3.6 mmol/L (3.5-5.1)
[2020-02-05 06:32] LABS: Albumin 3.5 g/dL (3.4-5.0); BUN/Creatinine Ratio 21.3; Bilirubin, Total 0.6 mg/dL (0.2-1.0); Calcium 9.3 mg/dL (8.5-10.1); Total Protein 7.2 g/dL (6.4-8.2)
[2020-02-05] MEDS ORDERED: InsuLIN REG 1unit/0.01ml Soln (100units/ml) SC SCH (07:00)
--- NOTE | 2020-02-05 07:30 | NUR ---
Opening Shift Note Assumed patient care from NOC RNBala. Patient currently out of bed, sitting on chair for breakfast. AOx4, respirations even and unlabored. Denies pain at this time. Urinary Output is currently light kym with minimal bleeding noted at this time. Patient inquiring about discharge and reeves catheter removal. Patient educated on need for reeves catheter at this time; patient verbalized understanding and is agreeable at this time. Safety precautions in place, will continue to monitor.
[2020-02-05 09:00] VITALS: BP 148/72
[2020-02-05] MEDS ORDERED: cefTRIAXone 1GM/50ML D5W 50 ML IV SCH (09:00)
--- NOTE | 2020-02-05 11:59 | NUR ---
Left Message Left message with Dr. Reeves regarding reeves catheter per Dr. Barrera request. Spoke with
--- NOTE | 2020-02-05 12:00 | NUR ---
at Bedside Dr. Barrera at bedside discussing plan of care with patient. Patient verbalized understanding and is agreeable at this time.
--- NOTE | 2020-02-05 12:20 | NUR ---
Keating Catheter Removed Keating Catheter discontinued using clean technique, patient tolerated well. No signs of distress at this time. Respirations even and unlabored. Safety precautions in place. Patient educated on after care and encouraged to call with first void. Patient verbalized understanding and is agreeable to plan at this time. Will continue to monitor.
[2020-02-05 12:33] VITALS: BP 148/72
--- NOTE | 2020-02-05 13:09 | NUR ---
First Void Patient voided, per patient, minimal discomfort. No signs of distress at this time. Safety precautions in place. Will continue to monitor.
--- NOTE | 2020-02-05 13:19 | NUR ---
Discharge Discharge instructions given as ordered. Encourage to follow up with PMD as instructed. All questions and concerns addressed. Patient verbalized understanding. Medication reconciliation form completed and copy given to patient. IV removed with catheter intact, pressure dressing applied, reeves catheter removed, first void reported by patient. Telemetry unit returned to ICU. Patient taken to vehicle via wheelchair with all personal belongings, accompanied by staff and family member. Patient provided information for follow up appointment, encouraged patient to allow RN to attempt to schedule appointments prior to discharge (as both offices were out to lunch), patient verbalized understanding but per patient, he is aware of need to schedule and wants to schedule appointments himself. No distress noted at time of departure.
== END 2020-02-05 13:19 | disposition home or self-care (01) | DRG 669 ==
LOC: SUR 09:58 → TELE-CENTR 09:59
PROVIDERS: ADMIT Urology; ATTEND Urology
PROC: 0TBB8ZZ Excision of Bladder, Via Natural or Artificial Opening Endoscopic (ICD-10-PCS; 2020-02-04)
PROC: 0T9B8ZZ Drainage of Bladder, Via Natural or Artificial Opening Endoscopic (ICD-10-PCS; 2020-02-04)
PROC: 3E0K705 Introduction of Other Antineoplastic into Genitourinary Tract, Via Natural or Artificial Opening (ICD-10-PCS; principal; 2020-02-04 13:10)
DX: D49.4 Neoplasm of unspecified behavior of bladder (principal); I13.0 Hypertensive heart and chronic kidney disease with heart failure and stage 1 through stage 4 chronic kidney disease, or unspecified chronic kidney disease; D64.9 Anemia, unspecified; E66.01 Morbid (severe) obesity due to excess calories; I50.9 Heart failure, unspecified; N18.2 Chronic kidney disease, stage 2 (mild); I25.10 Atherosclerotic heart disease of native coronary artery without angina pectoris; Z85.46 Personal history of malignant neoplasm of prostate; Z20.828 Contact with and (suspected) exposure to other viral communicable diseases; Z01.812 Encounter for preprocedural laboratory examination
CPT/HCPCS: 36415; 36600; 71045; 80053; 81001; 82805; 82962; 85025; 85610; 85730; 94002; 94640; G0378; J0330; J0696; J2250; J2704; J9280

== ENCOUNTER → 2020-08-18 | Outpatient (CLI) | payer MEDICARE, OTHER ==
[2020-08-18 16:49] LABS: Urine Bacteria NONE SEEN /hpf (None Seen); Urine Blood Negative /uL (Negative); Urine Specific Gravity 1.018 (1.001-1.035); Urine WBC 1 /hpf (0 - 3)
== END | disposition home or self-care (01) ==
LOC: LAB 16:30
PROVIDERS: ATTEND Urology
DX: D49.4 Neoplasm of unspecified behavior of bladder (principal); Z79.899 Other long term (current) drug therapy
CPT/HCPCS: 81001; 87086